=== PATIENT | female | born 1975 | race Hispanic/Latino ===

== ENCOUNTER 2019-01-23 00:33 | Emergency (ER) | payer BC ==
[2019-01-23] MEDS ORDERED: ASPIRIN PO ONE (01:32)
[2019-01-23 02:04] LABS: Basophils % (Auto) 0.3 % (0.0-1.8); Eosinophils # (Auto) 0.3 K/mm3 (0.0-0.4); Eosinophils % (Auto) 2.4 % (0.0-4.3); Hematocrit 42.8 % (30.3-42.9); Hemoglobin 14.7 gm/dl (10.1-14.3); Lymphocytes # (Auto) 3.3 K/mm3 (1.2-5.4); Lymphocytes % (Auto) 30.7 % (13.4-35.0); Mean Corpuscular HGB Conc 34 % (30-34); Mean Corpuscular Volume 86 fl (79-97); Monocytes # (Auto) 0.6 K/mm3 (0.0-0.8); Monocytes % (Auto) 5.8 % (0.0-7.3); Platelet Count 366 K/mm3 (140-440); Red Blood Count 4.95 M/mm3 (3.65-5.03); Red Cell Distribution Width 12.8 % (13.2-15.2)
[2019-01-23 02:25] LABS: BUN/Creatinine Ratio 14; Blood Urea Nitrogen 13 mg/dL (7-17); Calcium 10.3 mg/dL (8.4-10.2); Hemolysis Index 4
--- NOTE | 2019-01-23 05:39 | XRay Report ---
CHEST 1 VIEW 0239 INDICATION / CLINICAL INFORMATION: Chest Pain. COMPARISON: None available. FINDINGS: SUPPORT DEVICES: None HEART / MEDIASTINUM: No significant abnormality. LUNGS / PLEURA: No significant pulmonary or pleural abnormality. No pneumothorax. ADDITIONAL FINDINGS: No significant additional findings. IMPRESSION: No significant acute abnormality Signer Name: Andres Soler MD Signed: 01/23/2019 5:34 AM Workstation Name: [id number]
--- NOTE | 2019-01-23 06:25 | Emergency Department Report ---
ED Chest Pain HPI - General Chief Complaint: Chest Pain Stated Complaint: CHEST PAIN, N/V Time Seen by Provider: 01/23/19 06:05 Source: patient, family Mode of arrival: Ambulatory Limitations: No Limitations - History of Present Illness Initial Comments: She is a 43-year-old female that presents emergency room with complaints of chest pain, nausea vomiting, heartburn. She states her symptoms started last night at 10 PM and her symptoms have since resolved. Patient denies nausea and vomiting at this time. Patient states her chest pain has resolved. Patient states her chest pain when she arrived was a 2 out of 10 and a burning sensation. Patient states it was radiating from the base of her stomach up to her throat. Patient denies shortness of breath. Patient denies diaphoresis. Patient denies anxiety. Patient states her only past medical history is hypertension. MD Complaint: chest pain -: Sudden Onset: during rest Pain Location: epigastric Pain Radiation: neck Severity: mild Severity scale (0 -10): 2 Quality: other (burning sensation) Consistency: now resolved Improves With: rest Worsens With: other re: nausea, vomting. denies: diaphoresis, dyspnea, sense of impending doom Other Symptoms: acid taste in mouth, burping. denies: cough, fever, syncope, rash, leg swelling, palpitations Treatments Prior to Arrival: none Aspirin use within the Past 7 Days: (0) No - Related Data On Oral Contraceptives: No Previous Rx's Medication Instructions Recorded Last Taken Type Ondansetron [Zofran Odt] 4 mg PO Q6HR PRN #12 tab.rapdis 01/23/19 Unknown Rx Pantoprazole [Protonix] 40 mg PO QDAY 15 Days #15 tablet 01/23/19 Unknown Rx Allergies Allergy/AdvReac Type Severity Reaction Status Date / Time amoxicillin [From Augmentin] Allergy Rash Verified 01/23/19 06:35 clavulanic acid Allergy Rash Verified 01/23/19 06:35 [From Augmentin] Heart Score - HEART Score History: Slightly suspicious EKG: Normal Age: < 45 Risk factors: No known risk factors Troponin: < normal limit HEART Score: 0 ED Review of Systems ROS: Stated complaint: CHEST PAIN, N/V Other details as noted in HPI Constitutional: denies: chills, fever Eyes: denies: eye pain, eye discharge, vision change ENT: denies: ear pain, throat pain Respiratory: denies: cough, shortness of breath, wheezing Cardiovascular: chest pain. denies: palpitations Endocrine: no symptoms reported Gastrointestinal: nausea, vomiting. denies: abdominal pain, diarrhea Genitourinary: denies: urgency, dysuria, discharge Musculoskeletal: denies: back pain, joint swelling, arthralgia Skin: denies: rash, lesions Neurological: denies: headache, weakness, paresthesias Psychiatric: denies: anxiety, depression Hematological/Lymphatic: denies: easy bleeding, easy bruising ED Past Medical Hx - Past Medical History Previous Medical History?: Yes Hx Hypertension: Yes Hx Psychiatric Treatment: Yes (Depression/Stress) - Surgical History Past Surgical History?: Yes Additional Surgical History: D&C - Family History Family history: no significant - Social History Smoking Status: Never Smoker Substance Use Type: None - Medications Home Medications: Home Medications Medication Instructions Recorded Confirmed Last Taken Type Ondansetron [Zofran Odt] 4 mg PO Q6HR PRN #12 tab.rapdis 01/23/19 Unknown Rx Pantoprazole [Protonix] 40 mg PO QDAY 15 Days #15 tablet 01/23/19 Unknown Rx ED Physical Exam - General Limitations: No Limitations General appearance: alert, in no apparent distress - Head Head exam: Present: atraumatic, normocephalic - Eye Eye exam: Present: normal appearance - ENT ENT exam: Present: mucous membranes moist - Neck Neck exam: Present: normal inspection - Respiratory Respiratory exam: Present: normal lung sounds bilaterally. Absent: respiratory distress - Cardiovascular Cardiovascular Exam: Present: regular rate, normal rhythm. Absent: systolic murmur, diastolic murmur, rubs, gallop - GI/Abdominal GI/Abdominal exam: Present: soft, tenderness (epigastric tenderness), normal bowel sounds. Absent: distended, guarding, rebound - Extremities Exam Extremities exam: Present: normal inspection - Back Exam Back exam: Present: normal inspection - Neurological Exam Neurological exam: Present: alert, oriented X3 - Psychiatric Psychiatric exam: Present: normal affect, normal mood - Skin Skin exam: Present: warm, dry, intact, normal color. Absent: rash ED Course Vital Signs 01/23/19 01/23/19 01/23/19 01:14 05:16 06:48 Temperature 98.8 F Pulse Rate 91 H 67 Respiratory 14 16 16 Rate Blood Pressure 134/103 Blood Pressure 157/104 [Right] O2 Sat by Pulse 98 99 99 Oximetry - Reevaluation(s) Reevaluation #1: I discussed all results with patient. Patient is stable for discharge. Patient will be discharged home. Patient agrees with plan of care. Patient informed that her information is faxed over to local cardiology group for further evaluation of her chest pain. Patient given discharge instructions. Patient voiced understanding discharge instructions. 01/23/19 06:26 REYES score - Reyes Score Age > 65: (0) No Aspirin use within the Past 7 Days: (0) No 3 or more CAD Risk Factors: (0) No 2 or more Angina events in past 24 hrs: (0) No Known CAD with more than 50% Stenosis: (0) No Elevated Cardiac Markers: (0) No ST Deviation Greater than 0.5mm: (0) No REYES Score: 0 ED Medical Decision Making - Lab Data Result diagrams: 01/23/19 01:39 01/23/19 01:39 - EKG Data -: EKG Interpreted by Ct EKG shows normal: sinus rhythm, axis, intervals, QRS complexes, ST-T waves Rate: normal - Radiology Data Radiology results: report reviewed, image reviewed CHEST 1 VIEW 0239 INDICATION / CLINICAL INFORMATION: Chest Pain. COMPARISON: None available. FINDINGS: SUPPORT DEVICES: None HEART / MEDIASTINUM: No significant abnormality. LUNGS / PLEURA: No significant pulmonary or pleural abnormality. No pneumothorax. ADDITIONAL FINDINGS: No significant additional findings. IMPRESSION: No significant acute abnormality - Medical Decision Making Patient is a 43-year-old female that presents emergency room with complaints of chest pain, nausea and vomiting and heartburn. Patient's symptoms appear to be secondary to gastritis and gastroenteritis. Patient's symptoms have resolved. Patient will be given a daily PPI as well as Zofran to be taken when necessary for nausea and vomiting. Patient's labs unremarkable. Patient chest x-ray negative. Patient's EKG within normal limits. Patient is stable discharge. Patient information will be faxed over to the local cardiology group for further evaluation of her low risk chest pain. Patient's heart score is less than 2. Patient's REYES score is 0. Patient had 2 sets of cardiac enzymes and both were negative. - Differential Diagnosis chest pain. GERD. Gastritis. Gastroenteritis. Nausea vomiting. Critical care attestation.: If time is entered above; I have spent that time in minutes in the direct care of this critically ill patient, excluding procedure time. ED Disposition Clinical Impression: Gastroenteritis Nausea & vomiting Qualifiers: Vomiting type: unspecified Vomiting Intractability: non-intractable Qualified Code(s): R11.2 - Nausea with vomiting, unspecified Chest pain Qualifiers: Chest pain type: unspecified Qualified Code(s): R07.9 - Chest pain, unspecified Disposition: TO HOME OR SELFCARE Is pt being admited?: No Does the pt Need Aspirin: No Condition: Stable Instructions: Chest Pain (ED), Diet for Ulcers and Gastritis (ED), Gastroes ophageal Reflux Disease (ED) Additional Instructions: Patient to follow up with primary care in 2-3 days. Patient to follow-up with cardiology in 2-3 days. Patient to follow up with gastroenterology in 2-3 days. Patient to return to ER if condition worsens. Patient to take meds as directed. Patient increase water. Patient to eat a reflux and BRAT diet. Patient to avoid ibuprofen. Patient to take Tylenol when necessary for pain. Prescriptions: Pantoprazole [Protonix] 40 mg PO QDAY 15 Days #15 tablet Ondansetron [Zofran Odt] 4 mg PO Q6HR PRN #12 tab.rapdis PRN Reason: Nausea And Vomiting Referrals: SHIRLEY THOMPSON MD [Primary Care Provider] - 2-3 Days TERENCE MOE MD [Staff Physician] - 2-3 Days SANDRA SEPULVEDA MD [Staff Physician] - 2-3 Days Time of Disposition: 06:31
[2019-01-23 06:49] VITALS: BP 157/104
== END 2019-01-23 06:48 | disposition home or self-care (01) ==
LOC: ED 00:33
DX: K52.9 Noninfective gastroenteritis and colitis, unspecified (principal); I10 Essential (primary) hypertension; F32.9 Major depressive disorder, single episode, unspecified; Z88.1 Allergy status to other antibiotic agents; Z88.8 Allergy status to other drugs, medicaments and biological substances
CPT/HCPCS: 36415; 71045; 80048; 84484; 84703; 85025; 93005; 93010